=== PATIENT | female | born 1950 | race African-American/Black ===

== ENCOUNTER 2023-02-06 11:20 | Outpatient (CLI) | payer MEDICARE | END 2023-02-06 11:21 | disposition home or self-care (01) | LOC: CSHMAMMO 11:20 | PROVIDERS: ATTEND Family Medicine | DX: Z12.31 Encounter for screening mammogram for malignant neoplasm of breast (principal) | CPT/HCPCS: 77063; 77067 ==

== ENCOUNTER 2024-02-20 12:55 | Outpatient (CLI) | payer MEDICARE | END 2024-02-20 12:56 | disposition home or self-care (01) | LOC: CSHMAMMO 12:55 | PROVIDERS: ATTEND Family Medicine | DX: Z78.0 Asymptomatic menopausal state (principal); M85.88 Other specified disorders of bone density and structure, other site | CPT/HCPCS: 77080 ==